=== PATIENT | female | born 1950 | race Caucasian/White ===

== ENCOUNTER 2017-07-16 15:49 | Emergency (ER) | payer MEDICAID, MEDICARE ==
[~2017-07-16] VITALS: Ht 172.7 cm; Wt 80.0 kg
[~2017-07-16 15:49] MED LIST: CEFD300C37 PO; HYDR-3341 PO; METH4TAB2 PO; METO25TA35 PO
[2017-07-16] MEDS ORDERED: HYDROcodone/APAP 5/325 TABLET PO ONE (16:30)
[2017-07-16] MEDS ORDERED: HYDROcodone/APAP 5/325 TABLET ONE (16:30)
[2017-07-16 16:34] VITALS: BP 145/83
== END 2017-07-16 17:02 | disposition home or self-care (01) ==
LOC: ED 16:42
DX: G89.29 Other chronic pain (principal); M54.5 Low back pain; M25.562 Pain in left knee; M25.561 Pain in right knee; B86 Scabies; I10 Essential (primary) hypertension; J44.9 Chronic obstructive pulmonary disease, unspecified
CPT/HCPCS: 99283

== ENCOUNTER 2017-07-17 01:34 | Emergency (ER) | payer MEDICAID ==
[~2017-07-17] VITALS: Ht 157.5 cm; Wt 66.0 kg
[2017-07-17 01:39] VITALS: BP 129/88
[2017-07-17] MEDS ORDERED: ACETAMINOPHEN 500 MG TABLET PO ONE (02:30)
== END 2017-07-17 03:35 | disposition home or self-care (01) ==
LOC: ED 03:05
DX: G89.29 Other chronic pain (principal); M54.5 Low back pain; J44.9 Chronic obstructive pulmonary disease, unspecified; I10 Essential (primary) hypertension
CPT/HCPCS: 99282

== ENCOUNTER 2017-09-08 12:53 | Emergency (ER) | payer MEDICAID, MEDICARE ==
[~2017-09-08] VITALS: Ht 157.5 cm; Wt 74.5 kg
[2017-09-08 13:07] VITALS: BP 158/103
[2017-09-08] MEDS ORDERED: HYDROcodone/APAP 5/325 TABLET PO ONE (14:00)
[2017-09-08] MEDS ORDERED: KETOROLAC 30 MG/1 ML IM ONE (14:00)
== END 2017-09-08 15:01 | disposition home or self-care (01) ==
LOC: ED 14:30
DX: M48.54XA Collapsed vertebra, not elsewhere classified, thoracic region, initial encounter for fracture (principal); J44.9 Chronic obstructive pulmonary disease, unspecified; I10 Essential (primary) hypertension
CPT/HCPCS: 72110; 99284

== ENCOUNTER 2017-09-15 09:33 | Emergency (ER) | payer MEDICAID, MEDICARE ==
[~2017-09-15] VITALS: Ht 157.5 cm; Wt 66.8 kg
[2017-09-15 09:43] VITALS: BP 112/74
[2017-09-15] MEDS ORDERED: OXYcodone/APAP 5/325MG TABLET ONE (10:28)
[2017-09-15] MEDS ORDERED: KETOROLAC 30 MG/1 ML ONE (10:28)
[2017-09-15] MEDS ORDERED: DIAZEPAM 5 MG TABLET ONE (10:28)
[2017-09-15] MEDS ORDERED: KETOROLAC 30 MG/1 ML IM ONE (10:30)
[2017-09-15] MEDS ORDERED: OXYcodone/APAP 5/325MG TABLET PO ONE (10:30)
[2017-09-15] MEDS ORDERED: DIAZEPAM 5 MG TABLET PO ONE (10:30)
== END 2017-09-15 11:45 | disposition home or self-care (01) ==
LOC: ED 09:59
DX: M54.6 Pain in thoracic spine (principal); M54.5 Low back pain; J18.1 Lobar pneumonia, unspecified organism; I10 Essential (primary) hypertension; J44.9 Chronic obstructive pulmonary disease, unspecified; F41.9 Anxiety disorder, unspecified
CPT/HCPCS: 71046; 72072; 93005; 99284

== ENCOUNTER 2017-12-04 15:59 | Emergency (ER) | payer MEDICARE, MEDICAID ==
[~2017-12-04] VITALS: Ht 157.5 cm; Wt 73.4 kg
[2017-12-04 16:10] VITALS: BP 168/98
[2017-12-04] MEDS ORDERED: HYDROcodone/APAP 5/325 TABLET PO STA (16:28)
[2017-12-04] MEDS ORDERED: HYDROcodone/APAP 5/325 TABLET ONE (16:42)
== END 2017-12-04 17:42 | disposition home or self-care (01) ==
LOC: ED 17:23
DX: S90.31XA Contusion of right foot, initial encounter (principal); Z59.0 Homelessness; W19.XXXA Unspecified fall, initial encounter; Y93.89 Activity, other specified; Y99.8 Other external cause status; Y92.89 Other specified places as the place of occurrence of the external cause
CPT/HCPCS: 99284